=== PATIENT | female | born 1990 | race Caucasian/White ===

== ENCOUNTER 2025-02-13 13:26 | Outpatient (AMB) | payer OTHER, SELFPAY ==
--- NOTE | 2025-02-13 13:38 | OBCLNT_ITS ---
Vital Signs 02/13/25 13:43 Height 1.6 m Height Method Stated Weight 85.786 kg Weight Measurement Method Standing Scale BMI 33.5 BP 130/80 Blood Pressure Source Automatic Cuff Blood Pressure Location Right Upper Arm Position Sitting Respiration 18 Pulse 98 Pulse Source Monitor Temp 97 F Temp Source Temporal Artery Scan Pulse Oximetry (%) 99 Oxygen Delivery Method Room Air Allergies/Home Meds Allergies & Medications Allergies No Known Allergies Allergy (Verified 02/13/25 13:44) Medication Reconciliation amoxicillin 500 mg capsule 500 mg PO Q8H 02/13/25 [History Confirmed 02/13/25] aspirin 81 mg tablet,delayed release 81 mg PO QDAY 02/13/25 [History Confirmed 02/13/25] vits no.126-ferrous fum 28 mg iron-folic acid 800 mcg tablet (Classic ) tab PO 02/13/25 [History Confirmed 02/13/25] Intake Visit Data Collection New Patient or Established: New Patient (never been to [facility]) Reason for Visit:: obi Do You Feel Safe at Home: Yes Authorities Contacted: N/A PCP or OBGYN visit in last 3 months: Yes Last menstrual period: 10/19/24 Pain Present Currently: No Smoking Status Smoking Status: Never smoker Questionnaires Covid-19 Vaccine Questionnaire Has patient been vacinated for Covid-19 Have you been vacinated for Covid-19: Yes PHQ-9 PHQ-2 Over the last 2 weeks, how often have you been bothered by any of the following problems? 1. Little interest or pleasure in doing things: not at all 2. Feeling down, depressed, or hopeless: not at all Total score: 0 Depression screen completed yes Social History Living Situation History Marital Status: Lives With: Spouse Housing: House Tobacco History Smoking Status: Never smoker Domestic Abuse History Do You Feel Safe at Home: Yes Past Medical History Past Medical History Have you ever been diagnosed with any of the following: History of Present Illness HPI Narrative 34-year-old 1 para 0 for first visit to [facility] medical clinic. Patient has been getting the first 2 visits of care in [facility]. Patient's is stationed in [employer]. Last period October 19, 2024. This gives due date July 24, 2025. Patient 17 weeks and 1 day today she had her OB panel drawn in [place] and records are with her. NIPT was negative. Carrier screen negative. Patient is O+, antibody screen negative, RPR nonreactive, rubella immune, hepatitis B negative, hep C negative, HIV negative, GC and Chlamydia were negative. Patient had a early 1 hour screen that was normal. No anemia present. Patient reports that she feels well no nausea or vomiting. No signs of miscarriage. Denies any history of chronic illness. Denies surgery. Denies social habits. Patient is currently taking low-dose baby aspirin for the along with prenatals and iron. OB Initial Visit OB Flowsheet OB Flowsheet Initial Weight: Not Recorded Date -?-?-?-?-?-?-?-?-?-?-?-?- EGA Weight Edema CTX Effacement BP Fundal ht Pres Dilation Effacement Station Visit Note Alb Glu FHR Mov 02/13/25 -?-?-?-?-?-?-?-?-?-?-?-?- 16w 5d 85.786 kg absent absent 130/80 16 34-year-old 1 para 0 comes for her first visit today to [facility] OB clinic. Last period was 10/19/24. EDC 07/24/25. No second trimester complaints. Patient states that she feels good. We went over labs today. aFP will be drawn. Schedule anatomy scan with maternal- medicine. Continue vitamins vitamin D and iron. I discussed weight gain with patient and SAB precautions and return in 4 weeks. Patient plans to move in March to [facility] with her who is in the [employer]. 135 Menstrual History Menstrual reliability: definite Flow: normal Menstrual regularity: regular Monthly: Yes Age at menarche: 13 On control pills at conception: No Date of positive home test: 11/19/24 OB History : 1 Infection History & Risk Evaluation History of STDs: none HIV risk evaluation: low risk Hepatitis B risk evaluation: low risk Patient or partner has history of Genital Herpes: No Varicella/chicken pox status: immunized Genetic Screening & History Genetic Screening/Teratology Counseling - Includes patient, baby's father, or anyone in either family with: 1. Patient's age 35 years or older as of estimated date of delivery: Yes 2. Thalassemia (Indonesian, Albanian, Mediterranean, or Background); MCV less than 80: No 3. Neural Tube Defect (Meningomyelocele, Spina Bifida, or Anencephaly): No 4. Congenital Heart Defect: No 5. Down Syndrome: No 6. Yuri-Sachs (Ashkenazi Christianity, Cajun, Czech Citizen Of [place]): No 7. Giovanni Disease (Ashkenazi Christianity): No 8. Familial Dysautonomia (Ashkenazi Christianity): No 9. Sickle Cell Disease or Trait (): No 10. Hemophilia or other blood disorders: No 11. Muscular Dystrophy: No 12. Cystic Fibrosis: No 13. [place]'s Chorea: No 14. Mental Retardation/Autism: No 15. Other inherited genetic or chromosomal disorder: No 16. Maternal Metabolic Disorder (EG,TYPE 1 Diabetes, PKU): No 17. Patient or baby's father had a child with defects not listed above: No 18. Recurrent loss or a stillbirth: No 19. Medications (including supplements, vitamins, herbs or otc drugs)/illicit/recreational drugs/alcohol since last menstrual period: No 20. Any other: No Infection History 1. Live with someone with TB or exposed to TB: No 2. Rash or viral illness since last menstrual period: No 3. Hepatitis B,C: No Other (see comments) Source: [employer] Review of Systems Review of Systems Systems Reviewed: All systems reviewed, normal except as documented Exam General Limitations: no limitations General Appearance: alert, in no apparent distress, comfortable, cooperative, healthy appearing, well developed and well groomed Head Head exam: atraumatic, normocephalic and normal inspection Eye Eye exam: Present normal appearance, PERRL and EOMI ENT ENT exam: Present normal exam, normal oropharynx and mucous membranes moist Neck Neck exam: Present normal inspection, full ROM and trachea midline Chest Chest inspection: Present normal inspection and symmetric chest wall rise Resp Respiratory exam: Present normal lung sounds bilaterally Card Cardiovascular exam: Present regular rate, normal rhythm and normal heart sounds Abdominal Abdominal exam: Present soft and normal bowel sounds Extremities Extremities exam: Present normal inspection and full ROM Back Back exam: Present normal inspection and full ROM Neuro Neurological exam: Present alert, oriented X3 and CN II-XII intact Psych Psychiatric exam: Present normal affect and normal mood Skin Skin exam: Present warm, dry, intact and normal color Assessment & Plan Diagnosis / Problem List (1) Encounter for supervision of normal first , second trimester: Status: Acute (2) Advanced maternal age (AMA) in : Status: Acute Plan Continue prenatals iron and vitamin D. Discussed SAB precautions. Discussed weight gain and regular exercise. AFP today. Schedule anatomy scan with maternal- medicine. Reviewed labs. And return in 4 weeks OB check Additional Plan Follow Up: 4 Weeks (obc) Office Procedures OB Clinic LOC & Office Proc's Nursing/Assessment Patient Status: Initial/New Patient OB Clinic Nursing Assessment: Medication Reconciliation, Update PMH in EMR and Vital Signs OB Clinic Coordination of Care: Complex Care and Chronic Disease 1-5, Education Complex Pt/Fam and Staff clarify orders New Patient Charge New Patient Point Assignment: [id number] New Patient Point Charge: BILL OF LADING CLERK Level 3 ([id number])
[2025-02-13 13:43] VITALS: BP 130/80; PULSE 98; RESP 18; TEMP 36.1; O2SAT 99; BMI 33.5
== END 2025-02-13 14:05 | disposition home or self-care (01) ==
LOC: HODSOBC 13:26
PROVIDERS: Supervising Provider Obstetrics & Gynecology; Visit Provider Advanced Practice Midwife
DX: O09.512 Supervision of elderly primigravida, second trimester (principal); Z3A.16 16 weeks gestation of pregnancy
CPT/HCPCS: 99203; G0463

== ENCOUNTER 2025-03-26 08:53 | Outpatient (AMB) | payer OTHER, SELFPAY ==
[2025-03-26 09:08] VITALS: BP 142/77; PULSE 77; RESP 18; TEMP 36; O2SAT 96; BMI 35.3
--- NOTE | 2025-03-26 09:08 | OBCLNT_ITS ---
Vital Signs 03/26/25 09:08 Height 1.6 m Height Method Stated Weight 90.492 kg Weight Measurement Method Standing Scale BMI 35.3 BP 142/77 H Blood Pressure Source Automatic Cuff Blood Pressure Location Left Upper Arm Position Sitting Respiration 18 Pulse 77 Pulse Source Monitor Temp 96.8 F Temp Source Oral Pulse Oximetry (%) 96 Oxygen Delivery Method Room Air Allergies/Home Meds Allergies & Medications Allergies No Known Allergies Allergy (Verified 03/26/25 09:09) Medication Reconciliation amoxicillin 500 mg capsule 500 mg PO Q8H 02/13/25 [History Confirmed 03/26/25] aspirin 81 mg tablet,delayed release 81 mg PO QDAY 02/13/25 [History Confirmed 03/26/25] vits no.126-ferrous fum 28 mg iron-folic acid 800 mcg tablet (Classic ) tab PO 02/13/25 [History Confirmed 03/26/25] Intake Visit Data Collection New Patient or Established: Established Patient (seen at [facility] within 3 years) Reason for Visit:: OBC Special Services Coordinator Required: No Do You Feel Safe at Home: Yes Authorities Contacted: N/A PCP or OBGYN visit in last 3 months: Yes Date of Last PCP or OBGYN visit: 02/13/25 Hx Now: Yes Are you currently on any form of Control: No Pain Present Currently: No Pain Scale Used: Alvarez-Stanton/Numerical Pain scale:: 0 Smoking Status Smoking Status: Never smoker Questionnaires Covid-19 Vaccine Questionnaire Has patient been vacinated for Covid-19 Have you been vacinated for Covid-19: Yes PHQ-9 PHQ-2 Over the last 2 weeks, how often have you been bothered by any of the following problems? 1. Little interest or pleasure in doing things: not at all 2. Feeling down, depressed, or hopeless: not at all Total score: 0 PHQ-9 3. Trouble falling or staying asleep, or sleeping too much: Not at all 4. Feeling tired or having little energy: Not at all 5. Poor appetite or overeating: Not at all 6. Feeling bad about yourself - or that you are a failure or have let yourself or your family down: Not at all 7. Trouble concentrating on things, such as reading the newspaper or watching television: Not at all 8. Moving or speaking so slowly that other people could have noticed? - Or the opposite - being so fidgety or restless that you have been moving around a lot more than usual: not at all 9. Thoughts that you would be better off or of hurting yourself in some way: Not at all Total score: 0 If you checked off any problems, how difficult have these problems made it for you to do your work, take care of things at home, or get along with other people?: not difficult at all Source: Developed by Drs. Leroy Srinivasan, Tiarra Vargas, Jesu Condon and colleagues, with an educational emory from [employer]. Depression screen completed yes Social History Living Situation History Lives With: Spouse Housing: House Tobacco History Smoking Status: Never smoker Domestic Abuse History Do You Feel Safe at Home: Yes Care OB Visit Log OB Flowsheet Initial Weight: Not Recorded Date -?-?-?-?-?-?-?-?-?-?-?-?- EGA Weight BP Alb Glu CTX Pres Fundal ht FHR Mov Dilation Station Effacement Hx Notes Visit Note 02/13/25 -?-?-?-?-?-?-?-?-?-?-?-?- 16w 5d 85.786 kg 130/80 absent 16 135 34-year-old 1 para 0 comes for her first visit today to [facility] OB clinic. Last period was 10/19/24. EDC 07/24/25. No second trimester complaints. Patient states that she feels good. We went over labs today. aFP will be drawn. Schedule anatomy scan with maternal- medicine. Continue vitamins vitamin D and iron. I discussed weight gain with patient and SAB precautions and return in 4 weeks. Patient plans to move in March to [facility] with her who is in the [employer]. 03/26/25 -?-?-?-?-?-?-?-?-?-?-?-?- 22w 4d 90.492 kg 142/77 absent unknown 22 145 active feels good. no OB complaints. leaving for [facility] 04/01. no PTL complaints. compliant with PNV and low dose asa continue PNV and low dose asa. PTL precaution, hydrate. discuss sono, request for records VELVET Calculator Estimated Delivery Date Method Current WG Current Estimate 07/26/25 LMP (Certain) 22w 4d Other Estimates 07/26/25 Ultrasound #1 22w 4d 07/27/25 Ultrasound #2 22w 3d Notes Visit Date: 03/26/25 Last Updated by: Shira Eduardo, CNTricia 34 yo . LMP 10/19/24. EDC 07-26-25 O+,abs-, rpr;;nr, rub imm, hbsag-,hiv-,hc-, gc/ct-, NIPT and carrier screen-. anatomy scan: 03/15: EFW Office Procedures OB Clinic LOC & Office Proc's Nursing/Assessment Patient Status: Established Patient OB Clinic Nursing Assessment: Medication Reconciliation, Update PMH in EMR and Vital Signs OB Clinic Coordination of Care: Education Complex Pt/Fam, Consent,records obtained, informed consent, Lab and Imaging orders, Results/Orders obtained and Staff clarify orders Special Needs: Heart tones Established Patient Charge Established Patient Point Assignment: 115 Established Patient Point Charge: EP Level 3 (80-115) Assessment & Plan Diagnosis / Problem List (1) Advanced maternal age (AMA) in : Status: Acute (2) Encounter for supervision of normal first , second trimester: Status: Acute Plan Continue vitamins and low-dose baby aspirin. I discussed sono and lab results. Increase fluids and hydrate. And advised patient to ask for records to take with her to [place] Additional Plan Follow Up: 4 Weeks (obc)
== END 2025-03-26 09:38 | disposition home or self-care (01) ==
LOC: HODSOBC 08:53
PROVIDERS: Supervising Provider Obstetrics & Gynecology; Visit Provider Advanced Practice Midwife
DX: O09.512 Supervision of elderly primigravida, second trimester (principal); Z3A.22 22 weeks gestation of pregnancy
CPT/HCPCS: 99213; G0463